=== PATIENT | female | born 1980 ===

== ENCOUNTER 2021-12-01 15:00 | Inpatient (IN) | payer BC ==
[2021-12-01] MEDS: DEXTROSE 5%-LACTATED RINGERS 1,000 ML IV SCH (15:30)
[2021-12-01 16:21] VITALS: BMI 31.8
[2021-12-01] MEDS: MISOPROSTOL 25 MCG TABLET (COMPOUNDED BY PHARMACY) PO SCH (17:36)
[2021-12-01 17:38] LABS: BASO % 0.5 % (0-2.0); HEMATOCRIT 34.1 % (32.4-45.2); HEMOGLOBIN 11.6 GM/dL (10.7-15.3); LYMPH % 18.6 % (8-40); MCH 30.6 pg (25.7-33.7); MCHC 33.9 g/dl (32.0-36.0); MEAN CELL VOLUME 90.2 fl (80-96); MEAN PLT VOLUME 8.7 fl (7.5-11.1); MONO % 7.3 % (3.8-10.2); NEUT % 72.6 % (42.8-82.8); PLATELET COUNT 264 10^3/uL (134-434); RBC 3.78 M/mm3 (3.60-5.2); WHITE BLOOD COUNT 6.7 K/mm3 (4.0-10.0)
[2021-12-01 17:43] LABS: INR 0.89 (0.83-1.09); PROTHROMBIN TIME (PATIENT) 10.2 SEC (9.7-13.0)
[2021-12-01 17:46] LABS: ACTIVATED PTT 26.6 SECONDS (25.2-36.5)
[2021-12-01 18:06] LABS: BLOOD UREA NITROGEN 12.7 mg/dL (7-18); CALCIUM 8.8 mg/dL (8.5-10.1)
[2021-12-01 18:10] LABS: CREATININE 0.6 mg/dL (0.55-1.3)
[2021-12-01 18:31] LABS: SYPHILIS W/ RPR CONF NON-REACTIVE (NONREACTIVE)
[2021-12-01 18:59] LABS: HIV INTERPRETATION NEGATIVE (NEGATIVE)
[2021-12-01] MEDS ORDERED: CITRIC ACID/SODIUM CITRATE 30 ML UNIT-DOSE CUP PO ONE (21:29)
[2021-12-01] MEDS ORDERED: ePHEDrine SULFATE 50 MG/1 ML AMPULE ONE ×2 (21:52)
[2021-12-01] MEDS ORDERED: PROPOFOL 20 ML ONE ×2 (21:57)
[2021-12-01] MEDS ORDERED: SUCCINYLCHOLINE CHLORIDE 200 MG/10 ML SYRINGE ONE (21:57)
[2021-12-01 23:46] LABS: CORD HCO3 21.8 mmHg (20-29); CORD PCO2 57.2 mmHg (30-78); CORD pH 7.199 (7.14-7.44)
[2021-12-01 23:49] LABS: CORD BASE EXCESS -6.4 mmol/L (0-2); CORD HCO3 19.8 mmHg (20-29); CORD PCO2 41.5 mmHg (30-78); CORD pH 7.296 (7.14-7.44)
[2021-12-02] MEDS ORDERED: ACETAMINOPHEN 325 MG TABLET (FP) PO PRN (00:55)
[2021-12-02] MEDS ORDERED: WITCH HAZEL 50% (TUCKS) 40 PAD/JAR PAD TP PRN (00:55)
[2021-12-02] MEDS ORDERED: DEXTROSE 5%-LACTATED RINGERS 1,000 ML IV SCH (01:00)
[2021-12-02] MEDS: OXYTOCIN 20 UNITS in 0.9% NS 20 UNIT/1,000 ML INFUS.BAG IV SCH ×2 (01:15→10:09)
[2021-12-02] MEDS ORDERED: ONDANSETRON 4 MG/2 ML VIAL ONE (01:56)
[2021-12-02] MEDS ORDERED: SUCCINYLCHOLINE CHLORIDE 200 MG/10 ML SYRINGE ONE (02:03)
[2021-12-02] MEDS: MISOPROSTOL 25 MCG TABLET (COMPOUNDED BY PHARMACY) PO SCH (02:11)
[2021-12-02] MEDS ORDERED: ACETAMINOPHEN 1000 MG/100 ML BAG IVPB ONE (02:42)
[2021-12-02] MEDS ORDERED: ONDANSETRON 4 MG/2 ML VIAL IVPUSH PRN (02:43)
[2021-12-02] MEDS ORDERED: IBUPROFEN 600 MG TABLET (FP) PO ONE (02:44)
[2021-12-02] MEDS: FERROUS SO4 325 MG TABLET (FP) PO SCH ×2 (10:20→21:19)
[2021-12-02] MEDS: PRENATAL VITAMINS W/ FOLIC ACID TABLET (FP) PO SCH (10:20)
[2021-12-02] MEDS ORDERED: oxyCODONE HCL 5 MG TABLET PO PRN (12:56)
[2021-12-02] MEDS: IBUPROFEN 600 MG TABLET (FP) PO PRN ×2 (15:16→21:19)
[2021-12-02] MEDS: DEXTROSE 5%-LACTATED RINGERS 1,000 ML IV SCH (16:21)
[2021-12-02] MEDS: SIMETHICONE 80 MG TAB.CHEW (FP) PO PRN (18:38)
[2021-12-03 07:52] LABS: BASO % 0.3 % (0-2.0); EOS % 1.7 % (0-4.5); HEMATOCRIT 22.3 % (32.4-45.2); HEMOGLOBIN 7.5 GM/dL (10.7-15.3); LYMPH % 17.1 % (8-40); MCH 30.8 pg (25.7-33.7); MCHC 33.7 g/dl (32.0-36.0); MEAN CELL VOLUME 91.3 fl (80-96); MEAN PLT VOLUME 8.8 fl (7.5-11.1); MONO % 9.2 % (3.8-10.2); NEUT % 71.7 % (42.8-82.8); PLATELET COUNT 192 10^3/uL (134-434); RBC 2.44 M/mm3 (3.60-5.2); RDW 13.7 % (11.6-15.6); WHITE BLOOD COUNT 6.5 K/mm3 (4.0-10.0)
[2021-12-03] MEDS: IBUPROFEN 600 MG TABLET (FP) PO PRN (09:20)
[2021-12-03] MEDS: FERROUS SO4 325 MG TABLET (FP) PO SCH ×2 (09:20→22:07)
[2021-12-03] MEDS: SIMETHICONE 80 MG TAB.CHEW (FP) PO PRN ×2 (09:20→22:07)
[2021-12-03] MEDS: PRENATAL VITAMINS W/ FOLIC ACID TABLET (FP) PO SCH (09:20)
[2021-12-04] MEDS: IBUPROFEN 600 MG TABLET (FP) PO PRN ×2 (00:47→09:13)
[2021-12-04] MEDS: PRENATAL VITAMINS W/ FOLIC ACID TABLET (FP) PO SCH (09:13)
[2021-12-04] MEDS: FERROUS SO4 325 MG TABLET (FP) PO SCH (09:13)
[2021-12-04] MEDS: SIMETHICONE 80 MG TAB.CHEW (FP) PO PRN (09:21)
[2021-12-04 13:02] VITALS: BP 110/67; PULSE 62; TEMP 98.5
== END 2021-12-04 13:45 | disposition home or self-care (01) | DRG 788 ==
LOC: JLDR 15:00 → J3W 12-02 01:41
PROVIDERS: ADMIT Obstetrics & Gynecology Maternal & Fetal Medicine; ATTEND Obstetrics & Gynecology Maternal & Fetal Medicine
PROC: 10D00Z1 Extraction of Products of Conception, Low, Open Approach (ICD-10-PCS; principal; 2021-12-01)
DX: O75.82 Onset (spontaneous) of labor after 37 completed weeks of gestation but before 39 completed weeks gestation, with delivery by (planned) cesarean section (principal); Z3A.39 39 weeks gestation of pregnancy; Z37.0 Single live birth
CPT/HCPCS: 36415; 36600; 80048; 82803; 85025; 85610; 85730; 86780; 86850; 86900; 86901; 87389; 88307-TC; C9803-CS; U0003; U0005

== ENCOUNTER 2023-12-09 08:30 | Inpatient (IN) | payer BC ==
[2023-12-09] MEDS: DEXTROSE 5%-LACTATED RINGERS 1,000 ML IV SCH (09:00)
[2023-12-09 10:16] VITALS: BMI 35.2
[2023-12-09 10:38] LABS: METHADONE, UR NEGATIVE (NEGATIVE); PHENCYCLIDINE,URINE NEGATIVE (NEGATIVE); URINE AMPHETAMINES NEGATIVE (NEGATIVE); URINE BARBITURATES NEGATIVE (NEGATIVE); URINE BENZODIAZEPINES NEGATIVE (NEGATIVE)
[2023-12-09 10:43] LABS: COCAINE, UR NEGATIVE (NEGATIVE); OPIATES, URI NEGATIVE (NEGATIVE)
[2023-12-09] MEDS: CITRIC ACID/SODIUM CITRATE 30 ML UNIT-DOSE CUP PO ONE (12:20)
[2023-12-09] MEDS ORDERED: ONDANSETRON 4 MG/2 ML VIAL IVPUSH PRN (12:37)
[2023-12-09] MEDS ORDERED: IBUPROFEN 600 MG TABLET (FP) PO PRN (12:37)
[2023-12-09] MEDS ORDERED: morphine SULFATE/PF 1 MG/2 ML (2cc Syringe - QUVA) ONE (13:09)
[2023-12-09] MEDS ORDERED: FENTANYL CITRATE/PF 50 MCG/ML VIAL ONE (13:09)
[2023-12-09] MEDS ORDERED: ceFAZolin SODIUM 1 GM VIAL ONE ×2 (13:19)
[2023-12-09] MEDS ORDERED: ePHEDrine SULFATE 50 MG/1 ML AMPULE ONE (13:27)
[2023-12-09] MEDS ORDERED: DEXAMETHASONE SOD PHOSPHATE 4 MG/1 ML VIAL ONE (13:30)
[2023-12-09] MEDS ORDERED: ONDANSETRON 4 MG/2 ML VIAL ONE ×2 (13:30)
[2023-12-09 14:59] LABS: CORD BASE EXCESS -5.2 mmol/L (0-2); CORD HCO3 23.3 mmHg (20-29); CORD PCO2 57.5 mmHg (30-78); CORD pH 7.226 (7.14-7.44)
[2023-12-09 15:02] LABS: CORD BASE EXCESS -5.5 mmol/L (0-2); CORD HCO3 21.4 mmHg (20-29); CORD PCO2 46.9 mmHg (30-78); CORD pH 7.278 (7.14-7.44)
[2023-12-09] MEDS ORDERED: IBUPROFEN 800 MG/8 ML IJ IVPB ONE (16:49)
[2023-12-09] MEDS ORDERED: OXYTOCIN 20 UNITS in 0.9% NS 20 UNIT/1,000 ML INFUS.BAG IV ONE (17:00)
[2023-12-09] MEDS: ACETAMINOPHEN 1000 MG/100 ML BAG IVPB ONE (17:00)
[2023-12-09] MEDS: OXYTOCIN 20 UNITS in 0.9% NS 20 UNIT/1,000 ML INFUS.BAG IV SCH (19:00)
[2023-12-10] MEDS ORDERED: oxyCODONE HCL 5 MG TABLET PO PRN (03:15)
[2023-12-10] MEDS: SIMETHICONE 80 MG TAB.CHEW (FP) PO PRN (06:04)
[2023-12-10] MEDS: ACETAMINOPHEN 325 MG TABLET (FP) PO PRN (06:04)
[2023-12-10 07:28] LABS: BASO % 0.2 % (0-2.0); EOS % 0.2 % (0-4.5); HEMATOCRIT 25.8 % (32.4-45.2); HEMOGLOBIN 8.7 GM/dL (10.7-15.3); LYMPH % 11.2 % (8-40); MCH 29.7 pg (25.7-33.7); MCHC 33.7 g/dl (32.0-36.0); MEAN CELL VOLUME 88.3 fl (80-96); MEAN PLT VOLUME 8.9 fl (7.5-11.1); MONO % 8.3 % (3.8-10.2); NEUT % 80.1 % (42.8-82.8); PLATELET COUNT 197 10^3/uL (134-434); RBC 2.92 M/mm3 (3.60-5.2); RDW 12.7 % (11.6-15.6); WHITE BLOOD COUNT 11.2 K/mm3 (4.0-10.0)
[2023-12-10] MEDS: IBUPROFEN 800 MG/8 ML IJ IVPB ONE (10:54)
[2023-12-10] MEDS: FERROUS SO4 325 MG TABLET (FP) PO SCH (17:53)
[2023-12-10] MEDS: oxyCODONE HCL 5 MG TABLET PO SCH (19:20)
[2023-12-10] MEDS: IBUPROFEN 600 MG TABLET (FP) PO PRN (19:31)
[2023-12-10] MEDS: DOCUSATE SODIUM 100 MG CAPSULE (FP) PO PRN (19:32)
[2023-12-12 07:57] LABS: BASO % 0.5 % (0-2.0); HEMATOCRIT 26.4 % (32.4-45.2); HEMOGLOBIN 8.8 GM/dL (10.7-15.3); LYMPH % 19.1 % (8-40); MCH 30.1 pg (25.7-33.7); MCHC 33.4 g/dl (32.0-36.0); MEAN CELL VOLUME 90.2 fl (80-96); MEAN PLT VOLUME 8.2 fl (7.5-11.1); MONO % 7.6 % (3.8-10.2); NEUT % 68.8 % (42.8-82.8); PLATELET COUNT 245 10^3/uL (134-434); RBC 2.93 M/mm3 (3.60-5.2); RDW 13.2 % (11.6-15.6); WHITE BLOOD COUNT 6.9 K/mm3 (4.0-10.0)
[2023-12-12 12:32] VITALS: BP 101/62; PULSE 71; RESP 16; TEMP 98.7
== END 2023-12-12 13:30 | disposition home or self-care (01) | DRG 788 ==
LOC: JLDR 08:30 → J3W 17:24
PROVIDERS: ADMIT Obstetrics & Gynecology Maternal & Fetal Medicine; ATTEND Obstetrics & Gynecology Maternal & Fetal Medicine
PROC: 10D00Z1 Extraction of Products of Conception, Low, Open Approach (ICD-10-PCS; principal; 2023-12-09)
DX: O34.219 Maternal care for unspecified type scar from previous cesarean delivery (principal); Z3A.39 39 weeks gestation of pregnancy; Z37.0 Single live birth
CPT/HCPCS: 36415; 36600; 80307; 82803; 85025; 86780; 88307-TC; J0131